=== PATIENT | female | born 1950 | race Asian ===

== ENCOUNTER 2016-07-21 00:52 | Emergency (ER) | payer MEDICARE, OTHER ==
[~2016-07-21] VITALS: Ht 160 cm; Wt 60.0 kg
[~2016-07-21 00:52] MED LIST: AMLO10TA55 PO; ASPI-556 PO; CILO100T20 PO; CLOP75 PO; DOCU250C76 PO; GLIP10TA9 PO; INSLAN SQ; INSNOV SQ; ISOS60TA4 PO; LOSA100T8 PO; METO50 PO; ROSU40 PO; TRAM50TA4 PO; VITAD1000 PO
[2016-07-21 01:37] LABS: GLUCOSE COMMENT 1 Doctor Notified; GLUCOSE,POINT OF CARE 206 MG/DL (70-110)
[2016-07-21 01:58] LABS: BASOPHILS # (AUTO) 0.04 K/uL (0.00-0.20); BASOPHILS % (AUTO) 0.7 % (0.0-2.0); EOSINOPHILS # (AUTO) 0.17 K/uL (0.00-0.70); EOSINOPHILS % (AUTO) 3.14 % (1.0-6.0); HEMATOCRIT 39.3 % (36-46); HEMOGLOBIN 13.5 g/dL (12.0-16.0); LYMPHOCYTES # (AUTO) 1.8 K/uL (1.0-4.8); LYMPHOCYTES % (AUTO) 33.9 % (22.0-44.0); MEAN CORPUSCULAR HEMOGLOBIN 31.6 pg (26.0-34.0); MEAN CORPUSCULAR HGB CONC 34.2 G/dL (31.0-37.0); MEAN CORPUSCULAR VOLUME 92 fL (80-100); MONOCYTES # (AUTO) 0.4 K/uL (0.1-1.0); NEUTROPHILS % (AUTO) 54.4 % (40.0-70.0); PLATELET COUNT (AUTO) 185 K/uL (150-450); RED BLOOD CELL COUNT(AUTO) 4.26 MIL/uL (4.00-5.20); RED CELL DISTRIBUTION WIDTH 12.6 % (11.5-14.5); WHITE BLOOD COUNT (AUTO) 5.4 K/uL (4.5-11.0)
[2016-07-21 02:07] LABS: APPEARANCE,URINE CLEAR (CLEAR); GLUCOSE, URINE (UA) 500 mg/dL (NEGATIVE); KETONES,URINE NEGATIVE (NEGATIVE); LEUKOCYTE ESTERASE ,URINE NEGATIVE (NEGATIVE); OCCULT BLOOD,URINE TRACE (NEGATIVE); PROTEIN,URINE SEE CONFIRM (NEGATIVE)
[2016-07-21 02:08] LABS: CREATININE 1.82 mg/dL (0.60-1.30); POTASSIUM 4.5 mmol/L (3.5-5.1)
[2016-07-21 02:13] LABS: ALBUMIN 3.5 g/dL (3.4-5.0); BILIRUBIN,TOTAL 0.3 mg/dL (0.1-1.0); TOTAL PROTEIN, SERUM 7.3 g/dL (6.4-8.2)
[2016-07-21 02:40] LABS: SULFOSALICYLIC ACID,URINE 1+ (Negative); WBC,URINE None Seen /HPF (0-5)
[2016-07-21 02:41] LABS: SQUAMOUS EPITHELIAL CELL,UR Rare /LPF (None Seen)
[2016-07-21 02:52] LABS: GLUCOSE,POINT OF CARE 176 MG/DL (70-110)
[2016-07-21] MEDS ORDERED: SODIUM CHLORIDE 0.9% 500 ML IV ONE (03:00)
[2016-07-21] MEDS ORDERED: ACETAMINOPHEN 325 MG TABLET PO ONE (03:45)
[2016-07-21 04:17] VITALS: BP 157/76
== END 2016-07-21 04:36 | disposition home or self-care (01) ==
LOC: EMS 00:54
DX: R51 Headache (principal); E11.29 Type 2 diabetes mellitus with other diabetic kidney complication; N28.9 Disorder of kidney and ureter, unspecified; E78.00 Pure hypercholesterolemia, unspecified; I25.10 Atherosclerotic heart disease of native coronary artery without angina pectoris; Z95.1 Presence of aortocoronary bypass graft; Z79.82 Long term (current) use of aspirin; Z79.4 Long term (current) use of insulin; Z88.8 Allergy status to other drugs, medicaments and biological substances
CPT/HCPCS: 36415; 80053; 81001; 81002; 82948; 82962; 84484; 85025; 93005; 96360; 99285; J7030

== ENCOUNTER 2016-12-08 11:26 | Emergency (ER) | payer MEDICARE, OTHER ==
[~2016-12-08] VITALS: Ht 152.4 cm; Wt 80.0 kg
[2016-12-08] MEDS ORDERED: SENN-30 PO (11:44)
[2016-12-08] MEDS ORDERED: ACETAMINOPHEN 500 MG TABLET PO ONE (11:45)
[2016-12-08] MEDS ORDERED: BACITRACIN 0.9 GM PACKET OINTMENT TP ONE (11:45)
[2016-12-08] MEDS ORDERED: PERTUSS(ACELL),DIPH,TET VAC/PF 0.5 ML VIAL IM ONE (11:45)
[2016-12-08] MEDS ORDERED: HYDROCODONE/ACETAMINOPHEN 5-325 MG TABLET PO ONE (12:45)
[2016-12-08 13:51] VITALS: BP 159/86
== END 2016-12-08 13:53 | disposition home or self-care (01) ==
LOC: EMS 11:36
DX: S80.01XA Contusion of right knee, initial encounter (principal); S80.212A Abrasion, left knee, initial encounter; I10 Essential (primary) hypertension; E11.9 Type 2 diabetes mellitus without complications; E78.00 Pure hypercholesterolemia, unspecified; I25.10 Atherosclerotic heart disease of native coronary artery without angina pectoris; Z79.4 Long term (current) use of insulin; Z88.8 Allergy status to other drugs, medicaments and biological substances; W01.0XXA Fall on same level from slipping, tripping and stumbling without subsequent striking against object, initial encounter; Y93.89 Activity, other specified; Y92.89 Other specified places as the place of occurrence of the external cause; Y99.8 Other external cause status
CPT/HCPCS: 90471; 90715; 99284

== ENCOUNTER 2017-04-26 17:27 | Emergency (ER) | payer MEDICARE, OTHER ==
[~2017-04-26] VITALS: Ht 144.8 cm; Wt 51.4 kg
[~2017-04-26 17:27] MED LIST changes: -DOCU250C76 PO; +LOSA100T2 PO; -LOSA100T8 PO; +SENN-175 PO; -TRAM50TA4 PO
[2017-04-26 19:05] LABS: BASOPHILS # (AUTO) 0.02 K/uL (0.00-0.20); BASOPHILS % (AUTO) 0.4 % (0.0-2.0); EOSINOPHILS # (AUTO) 0.24 K/uL (0.00-0.70); EOSINOPHILS % (AUTO) 4.44 % (1.0-6.0); HEMATOCRIT 37.6 % (36-46); HEMOGLOBIN 12.7 g/dL (12.0-16.0); LYMPHOCYTES % (AUTO) 19.1 % (22.0-44.0); MEAN CORPUSCULAR HEMOGLOBIN 31.4 pg (26.0-34.0); MEAN CORPUSCULAR HGB CONC 33.9 G/dL (31.0-37.0); MEAN CORPUSCULAR VOLUME 93 fL (80-100); MONOCYTES # (AUTO) 0.5 K/uL (0.1-1.0); MONOCYTES % (AUTO) 8.4 % (2.0-9.0); NEUTROPHILS # (AUTO) 3.7 K/uL (1.8-7.7); NEUTROPHILS % (AUTO) 67.7 % (40.0-70.0); PLATELET COUNT (AUTO) 177 K/uL (150-450); RED BLOOD CELL COUNT(AUTO) 4.05 MIL/uL (4.00-5.20); RED CELL DISTRIBUTION WIDTH 12.7 % (11.5-14.5)
[2017-04-26 19:17] LABS: INR 0.9 (0.9-1.1)
[2017-04-26 19:19] LABS: CALCIUM, TOTAL 9.4 mg/dL (8.8-10.5); CREATININE 2.22 mg/dL (0.60-1.30); POTASSIUM 4.4 mmol/L (3.5-5.1)
[2017-04-26 19:25] LABS: ALBUMIN 3.6 g/dL (3.4-5.0); BILIRUBIN,TOTAL 0.3 mg/dL (0.1-1.0); TOTAL PROTEIN, SERUM 7.5 g/dL (6.4-8.2)
[2017-04-26] MEDS ORDERED: HYDROmorphone 2 MG/ML SYRINGE IVP ONE (19:45)
[2017-04-26] MEDS ORDERED: ONDANSETRON HCL 4 MG/2 ML VIAL IVP ONE (19:45)
[2017-04-26 20:04] VITALS: BP 178/82
== END 2017-04-26 20:07 | disposition short-term general hospital (02) ==
LOC: EMS 17:29
DX: S06.6X1A Traumatic subarachnoid hemorrhage with loss of consciousness of 30 minutes or less, initial encounter (principal); I25.10 Atherosclerotic heart disease of native coronary artery without angina pectoris; E11.9 Type 2 diabetes mellitus without complications; E78.00 Pure hypercholesterolemia, unspecified; I10 Essential (primary) hypertension; Z95.1 Presence of aortocoronary bypass graft; Z88.8 Allergy status to other drugs, medicaments and biological substances; Z79.4 Long term (current) use of insulin; Z79.82 Long term (current) use of aspirin; W01.0XXA Fall on same level from slipping, tripping and stumbling without subsequent striking against object, initial encounter; Y93.89 Activity, other specified; Y92.89 Other specified places as the place of occurrence of the external cause; Y99.8 Other external cause status
CPT/HCPCS: 36415; 70450; 72125; 80053; 84484; 85025; 85610; 85730; 93005; 96374; 96375; 99291; J1170; J2405

== ENCOUNTER 2017-11-07 01:15 | Emergency (ER) | payer MEDICARE, OTHER ==
[~2017-11-07] VITALS: Ht 144.8 cm; Wt 50.9 kg
[2017-11-07 01:28] LABS: GLUCOSE,POINT OF CARE 202 MG/DL (70-110)
[2017-11-07] MEDS ORDERED: GABA-529 PO (01:32)
[2017-11-07] MEDS ORDERED: ASPI-1182 PO (01:32)
[2017-11-07] MEDS ORDERED: HYDR10TA31 PO (01:32)
[2017-11-07] MEDS ORDERED: FENO54TA6 PO (01:32)
[2017-11-07] MEDS ORDERED: ACETAMINOPHEN 500 MG TABLET PO ONE (04:00)
[2017-11-07] MEDS ORDERED: IBUPROFEN 600 MG TABLET PO ONE (04:00)
[2017-11-07 04:19] LABS: BASOPHILS % (AUTO) 0.5 % (0.0-2.0); EOSINOPHILS % (AUTO) 0.4 % (1.0-6.0); HEMATOCRIT 36.4 % (36-46); HEMOGLOBIN 12.4 g/dL (12.0-16.0); LYMPHOCYTES # (AUTO) 1.2 K/uL (1.0-4.8); LYMPHOCYTES % (AUTO) 14.6 % (22.0-44.0); MEAN CORPUSCULAR HEMOGLOBIN 30.5 pg (26.0-34.0); MEAN CORPUSCULAR HGB CONC 34.1 G/dL (31.0-37.0); MEAN CORPUSCULAR VOLUME 90 fL (80-100); MONOCYTES # (AUTO) 0.8 K/uL (0.1-1.0); MONOCYTES % (AUTO) 9.7 % (2.0-9.0); NEUTROPHILS # (AUTO) 6.3 K/uL (1.8-7.7); NEUTROPHILS % (AUTO) 74.8 % (40.0-70.0); PLATELET COUNT (AUTO) 220 K/uL (150-450); RED BLOOD CELL COUNT(AUTO) 4.07 MIL/uL (4.00-5.20); RED CELL DISTRIBUTION WIDTH 13.2 % (11.5-14.5)
[2017-11-07 04:28] LABS: CALCIUM, TOTAL 9.1 mg/dL (8.8-10.5); CREATININE 2.69 mg/dL (0.60-1.30)
[2017-11-07 04:33] LABS: ALBUMIN 2.6 g/dL (3.4-5.0); BILIRUBIN,TOTAL 0.3 mg/dL (0.1-1.0); TOTAL PROTEIN, SERUM 6.9 g/dL (6.4-8.2)
[2017-11-07 05:00] VITALS: BP 135/67
== END 2017-11-07 05:10 | disposition home or self-care (01) ==
LOC: EMS 01:16
DX: R51 Headache (principal); E11.65 Type 2 diabetes mellitus with hyperglycemia; F41.9 Anxiety disorder, unspecified; N28.9 Disorder of kidney and ureter, unspecified; I25.10 Atherosclerotic heart disease of native coronary artery without angina pectoris; E78.00 Pure hypercholesterolemia, unspecified; I10 Essential (primary) hypertension; Z95.1 Presence of aortocoronary bypass graft; Z79.4 Long term (current) use of insulin; Z79.82 Long term (current) use of aspirin; Z88.8 Allergy status to other drugs, medicaments and biological substances
CPT/HCPCS: 93005; 99285

== ENCOUNTER → 2019-11-08 | Outpatient (CLI) | payer MEDICARE, OTHER ==
[~2019-11-08] MED LIST changes: -AMLO10TA55 PO; +ASPI-1111 PO; -ASPI-556 PO; -CILO100T20 PO; +CLOP-31 PO; -CLOP75 PO; +FENO54TA6 PO; +GABA-1216 PO; +HYDR10TA31 PO; -SENN-175 PO; +SENN-277 PO; -VITAD1000 PO
[2019-11-08 09:50] LABS: APPEARANCE,URINE CLEAR (CLEAR); BILIRUBIN,URINE NEGATIVE (NEGATIVE); GLUCOSE, URINE (UA) NEGATIVE (NEGATIVE); KETONES,URINE NEGATIVE (NEGATIVE); LEUKOCYTE ESTERASE ,URINE NEGATIVE (NEGATIVE); NITRATE,URINE NEGATIVE (NEGATIVE); OCCULT BLOOD,URINE NEGATIVE (NEGATIVE); PROTEIN,URINE SEE CONFIRM (NEGATIVE); UROBILINOGEN,URINE 0.2 mg/dL (<=1.0)
[2019-11-08 09:53] LABS: CREATININE,URINE RANDOM 82.3 mg/dL (30.0-125.0); PROTEIN,URINE RANDOM 368 mg/dL (0-11.9)
[2019-11-08 09:59] LABS: BACTERIA,URINE None Seen /HPF (None Seen); RBC,URINE 0-2 /HPF (0-2); SQUAMOUS EPITHELIAL CELL,UR Few /LPF (None Seen); SULFOSALICYLIC ACID,URINE 3+ (Negative); WBC,URINE 0-2 /HPF (0-5)
[2019-11-08 10:03] LABS: HEMOGLOBIN A1C 6.5 % (3.8-5.6)
[2019-11-08 10:08] LABS: ALBUMIN 3.6 g/dL (3.4-5.0); BILIRUBIN,TOTAL 0.2 mg/dL (0.1-1.0); CALCIUM, TOTAL 8.9 mg/dL (8.8-10.5); CHOL/HDL RATIO 2.9 (3.9-5.7); CREATININE 3.59 mg/dL (0.60-1.30); PHOSPHORUS 5.7 mg/dL (2.5-4.9); POTASSIUM 4.4 mmol/L (3.5-5.1); TOTAL PROTEIN, SERUM 7.8 g/dL (6.4-8.2)
== END | disposition home or self-care (01) ==
LOC: LABPV 07:35
PROVIDERS: ATTEND Internal Medicine Nephrology
DX: I25.10 Atherosclerotic heart disease of native coronary artery without angina pectoris (principal); E11.22 Type 2 diabetes mellitus with diabetic chronic kidney disease; N18.4 Chronic kidney disease, stage 4 (severe)
CPT/HCPCS: 82570; 83036; 83970; 84100; 84156

== ENCOUNTER → 2019-12-06 | Outpatient (CLI) | payer MEDICARE, OTHER ==
[2019-12-06 12:39] LABS: HEMATOCRIT 30.7 % (36-46); HEMOGLOBIN 10.7 g/dL (12.0-16.0)
[2019-12-06 12:46] LABS: CALCIUM, TOTAL 8.9 mg/dL (8.8-10.5); CREATININE 3.47 mg/dL (0.60-1.30); PHOSPHORUS 4.3 mg/dL (2.5-4.9)
[2019-12-06 14:44] LABS: CREATININE,URINE 59.1 mg/dL (30.0-125.0)
[2019-12-06 14:50] LABS: CREATININE,SERUM FOR CRCL 3.47 mg/dL (0.60-1.30)
== END | disposition home or self-care (01) ==
LOC: LABPV 08:09
PROVIDERS: ATTEND Internal Medicine Nephrology
DX: N18.5 Chronic kidney disease, stage 5 (principal); D63.1 Anemia in chronic kidney disease; E55.9 Vitamin D deficiency, unspecified
CPT/HCPCS: 81050; 82306; 82575; 83970; 84100; 84156; 84300; 85014; 85018

== ENCOUNTER → 2020-01-19 | Outpatient (CLI) | payer MEDICARE, OTHER ==
[2020-01-19 10:38] LABS: HEMOGLOBIN 9.9 g/dL (12.0-16.0)
[2020-01-19 10:42] LABS: CALCIUM, TOTAL 8.5 mg/dL (8.8-10.5); CREATININE 3.89 mg/dL (0.60-1.30); POTASSIUM 4.4 mmol/L (3.5-5.1)
== END | disposition home or self-care (01) ==
LOC: LABPV 09:12
PROVIDERS: ATTEND Internal Medicine Nephrology
DX: N18.5 Chronic kidney disease, stage 5 (principal); D63.1 Anemia in chronic kidney disease
CPT/HCPCS: 83540; 83550; 85014; 85018

== ENCOUNTER → 2020-02-20 | Outpatient (CLI) | payer MEDICARE, OTHER ==
[2020-02-20 11:15] LABS: HEMATOCRIT 28.7 % (36-46); HEMOGLOBIN 9.8 g/dL (12.0-16.0)
[2020-02-20 11:49] LABS: FOLATE SERUM 17.2 ng/mL (5.4-)
[2020-02-20 12:13] LABS: % IRON SATURATION 25.6 % (22-44)
[2020-02-20 12:23] LABS: CALCIUM, TOTAL 8.1 mg/dL (8.8-10.5); CREATININE 3.8 mg/dL (0.60-1.30); PHOSPHORUS 4.1 mg/dL (2.5-4.9); POTASSIUM 4.5 mmol/L (3.5-5.1)
== END | disposition home or self-care (01) ==
LOC: LABPV 07:33
PROVIDERS: ATTEND Internal Medicine Nephrology
DX: N18.5 Chronic kidney disease, stage 5 (principal); D63.1 Anemia in chronic kidney disease
CPT/HCPCS: 82607; 82746; 83540; 83550; 84100; 85014; 85018

== ENCOUNTER 2020-02-29 19:20 | Emergency (ER) | payer MEDICARE, OTHER ==
[~2020-02-29] VITALS: Ht 152.4 cm; Wt 45.5 kg
[2020-02-29] MEDS ORDERED: KETOROLAC TROMETHAMINE 30 MG/ML VIAL IM ONE (19:45)
[2020-02-29] MEDS ORDERED: SODI650T33 PO (20:03)
[2020-02-29] MEDS ORDERED: LINA5TAB PO (20:03)
[2020-02-29] MEDS ORDERED: SEVE800T17 PO (20:03)
[2020-02-29] MEDS ORDERED: FURO40 PO (20:03)
[2020-02-29 20:18] LABS: GLUCOSE,POINT OF CARE 93 MG/DL (70-110)
[2020-02-29 21:53] VITALS: BP 140/74
== END 2020-02-29 20:50 | disposition home or self-care (01) ==
LOC: EMS 19:20
DX: M54.6 Pain in thoracic spine (principal); I25.10 Atherosclerotic heart disease of native coronary artery without angina pectoris; E11.9 Type 2 diabetes mellitus without complications; E78.00 Pure hypercholesterolemia, unspecified; I10 Essential (primary) hypertension
CPT/HCPCS: 72072; 82962; 96372; 99283; J1885

== ENCOUNTER 2022-09-14 08:59 | Emergency (ER) | payer MEDICARE, OTHER ==
[~2022-09-14] VITALS: Ht 144.8 cm; Wt 45.5 kg
[~2022-09-14 08:59] MED LIST changes: +ACET650S24 PR; +AMLO-258 PO; +APIX2.5T PO; -ASPI-1111 PO; +ASPI-1444 PO; +BISA10SU11 PR; +CARV12 PO; -CLOP-31 PO; +DEXA2 PO; -FENO54TA6 PO; -GLIP10TA9 PO; -HYDR10TA31 PO; +HYDR25TA84 PO; -INSLAN SQ; -INSNOV SQ; +INSU100V39 SQ; -ISOS60TA4 PO; +ISOS60TA77 PO; +LEVO-72 PO; -LOSA100T2 PO; -METO50 PO; +ONDA-104 PO; +PANT40TA PO; -SENN-277 PO; +SEVE800T17 PO; +SODI10PO2 PO; +SODI650T33 PO
[2022-09-14 11:13] VITALS: BP 151/60
[2022-09-14] MEDS ORDERED: DOCU-385 PO (11:15)
== END 2022-09-14 11:40 | disposition home or self-care (01) ==
LOC: EMS 09:00
DX: K56.41 Fecal impaction (principal); E11.9 Type 2 diabetes mellitus without complications; E78.00 Pure hypercholesterolemia, unspecified; I25.10 Atherosclerotic heart disease of native coronary artery without angina pectoris; I10 Essential (primary) hypertension; Z98.890 Other specified postprocedural states
CPT/HCPCS: 74022; 99284; Z7502